=== PATIENT | female | born 1980 | race Caucasian/White ===

== ENCOUNTER 2019-10-09 09:40 | Outpatient (CLI) | payer BC ==
--- NOTE | 2019-10-09 10:33 | MMO ---
Bilateral MAMMO Bilat Screen [facility]. CLINICAL HISTORY: Patient is 39 years old and is seen for screening. The patient has no family history of breast cancer. The patient has no personal history of cancer. VIEWS: The views performed were: bilateral craniocaudal with tomosynthesis and bilateral mediolateral oblique with tomosynthesis. This study has been interpreted with the assistance of computer-aided detection. MAMMOGRAM FINDINGS: The breasts are heterogeneously dense, which could obscure a lesion on mammography. Finding 1: There are benign appearing calcifications seen in both breasts. Finding 2: There are multiple nodules with circumscribed margins seen in both breasts. There are no suspicious masses, suspicious calcifications, or new areas of architectural distortion. IMPRESSION: THERE IS NO MAMMOGRAPHIC EVIDENCE OF MALIGNANCY. A ROUTINE FOLLOW-UP MAMMOGRAM IN 1 YEAR IS RECOMMENDED. THE RESULTS OF THIS EXAM WERE SENT TO THE PATIENT. ACR BI-RADS Category 2 - Benign finding MAMMOGRAPHY NOTE: 1. A negative mammogram report should not delay a biopsy if a dominant of clinically suspicious mass is present. 2. Approximately 10% to 15% of breast cancers are not detected by mammography. 3. Adenosis and dense breasts may obscure an underlying neoplasm. Reported by: ELOISE MILLER MD Electonically Signed: [id number]
== END 2019-10-09 09:41 | disposition home or self-care (01) ==
LOC: BICMAMMO 09:40
PROVIDERS: ATTEND Physician Assistant
DX: Z12.31 Encounter for screening mammogram for malignant neoplasm of breast (principal)
CPT/HCPCS: 77063; 77067

== ENCOUNTER 2019-11-18 07:45 | Outpatient (CLI) | payer BC ==
--- NOTE | 2019-11-18 09:53 | MRI ---
BRAIN MRI WITH AND WITHOUT CONTRAST: Date: 11/18/2019 COMPARISON: None. HISTORY: Multiple sclerosis. TECHNIQUE: Multiplanar, multisequence MR imaging of the brain is obtained with and without contrast. FINDINGS: The diffusion-weighted imaging demonstrates no evidence for acute infarction and the axial gradient e cho imaging demonstrates no evidence for intracranial hemorrhage. There is no midline shift or mass e ffect. No ventricular enlargement is noted. There are numerous scattered foci of increased T2 and FLAIR signal throughout the white matter includ ing the periventricular, deep, and subcortical white matter of bilateral cerebral hemispheres. Many o f the lesions described above demonstrate a perpendicular configuration with respect to the margin of the lateral ventricles, consistent with the provided history of multiple sclerosis. No comparison im aging is available. No discrete abnormality is appreciated within the brainstem or the posterior serge a. The imaged paranasal sinuses and mastoid air cells are well aerated. Arterial flow-voids at the ax ial level of the skull base appear grossly unremarkable on the T2-weighted imaging. Postcontrast imag ing is provided, demonstrating no abnormal enhancement within the brain parenchyma to suggest the pre sence of active demyelination. IMPRESSION: Findings consistent with the patient's history of multiple sclerosis. No enhancing lesions are noted to suggest presence of active demyelination. No comparison imaging is available. If comparison imaging becomes available, an addendum could be meme valdemar on this report. POS: [facility]
[2019-11-18] MEDS ORDERED: Magnevist 469MG/ML 20 ML VIAL ONE (14:20)
== END 2019-11-18 07:46 | disposition home or self-care (01) ==
LOC: BICMRI 07:45
PROVIDERS: ATTEND Psychiatry & Neurology Neurology
DX: G35 Multiple sclerosis (principal)
CPT/HCPCS: 70553; A9579

== ENCOUNTER 2021-10-14 08:32 | Outpatient (CLI) | payer BC | END 2021-10-14 08:33 | disposition home or self-care (01) | LOC: BICRAD 08:32 | PROVIDERS: ATTEND Physician Assistant | DX: M25.552 Pain in left hip (principal) ==

== ENCOUNTER 2021-10-28 09:47 | Outpatient (CLI) | payer BC | END 2021-10-28 09:48 | disposition home or self-care (01) | LOC: BICMAMMO 09:47 | PROVIDERS: ATTEND Physician Assistant | DX: Z12.31 Encounter for screening mammogram for malignant neoplasm of breast (principal); Z80.3 Family history of malignant neoplasm of breast | CPT/HCPCS: 77063; 77067 ==

== ENCOUNTER 2022-12-20 08:40 | Outpatient (CLI) | payer BC | END 2022-12-20 08:41 | disposition home or self-care (01) | LOC: BICMAMMO 08:40 | PROVIDERS: ATTEND Nurse Practitioner Family | DX: Z12.31 Encounter for screening mammogram for malignant neoplasm of breast (principal) | CPT/HCPCS: 77063; 77067 ==

== ENCOUNTER 2024-09-15 10:09 | Emergency (ER) | payer BC ==
[2024-09-15 11:00] LABS: #Basophils 0.06 10x3/uL (0.0-0.2); %Basophils 1.5 % (0.0-1.0); %Eosinophils 2.3 % (0.0-10.0); %Lymphocytes 4.8 % (21.0-51.0); %Monocytes 9.9 % (0.0-10.0); %Neutrophils 81.2 % (42.0-75.0); Hematocrit 37.9 % (36.0-47.0); Hemoglobin 12.5 g/dL (12.0-16.0); Mean Corpuscular Hemoglobin 29.7 pg (27.0-31.0); Mean Platelet Volume 9.5 fL (7.4-10.4); Platelet Count 346 10x3/uL (130-400); Red Blood Cell (RBC) Count 4.21 mill/uL (4.20-5.40)
[2024-09-15 11:38] LABS: ALT (SGPT) 95 U/L (8-55); AST (SGOT) 86 U/L (5-34); Albumin 4.4 g/dL (3.5-5.0); Alkaline Phosphatase 126 U/L (40-110); Anion Gap 12 mmol/L (10-20); BUN (Urea Nitrogen) 19 mg/dL (7.0-18.7); Bilirubin, Total 0.7 mg/dL (0.2-1.2); Calc. Creatinine Clearance 0 mL/min (70-130); Calcium 10.2 mg/dL (7.8-10.44); Carbon Dioxide 26 mmol/L (22-29); Chloride 108 mmol/L (98-107); Estimated GFR 104; Globulin 3.1 g/dL (2.4-3.5); Glucose 96 mg/dL (70-105); Lipase 22 U/L (8-78); Potassium 4.1 mmol/L (3.5-5.1); Protein, Total 7.5 g/dL (6.0-8.3); Sodium 142 mmol/L (136-145)
[2024-09-15 11:53] LABS: Bacteria/HPF None Seen HPF (None Seen); Bilirubin Negative (Negative); Blood, Urine Negative (Negative); CAUTI Indications for Culture Dysuria,urgency,freq; Clarity Clear (Clear); Glucose, Urine (Dipstick) Normal (Negative); Ketone, Urine Negative (Negative); Leukocyte Negative Leu/uL (Negative); Nitrite Negative (Negative); Protein, Urine (Dipstick) Negative (Neg-Trace); RBC/HPF 0-3 HPF (0-3); Specific Gravity, Urine 1.013 (1.002-1.036); Squamous Epithelial 0-3 HPF (0-3); Urobilinogen Normal mg/dL (Less than 2); WBC/HPF 0-3 HPF (0-3); pH, Urine 6.5 (5.0-9.0)
[2024-09-15 11:57] LABS: Urine Culture Reflex No No
[2024-09-15] MEDS ORDERED: Ketorolac Tromethamine 30 MG (1 mL) VIAL ONE (12:01)
[2024-09-15] MEDS ORDERED: Ondansetron PF 4 MG/2 ML Vial ONE (12:01)
== END 2024-09-15 13:15 | disposition home or self-care (01) ==
LOC: ERS 10:09
DX: K80.20 Calculus of gallbladder without cholecystitis without obstruction (principal); N20.0 Calculus of kidney
CPT/HCPCS: 36415; 74177; 76705; 80053; 81001; 83690; 85025; 93005; 96361; 96374; 96375; J1885; J2405